=== PATIENT | male | born 1980 ===

== ENCOUNTER 2024-09-07 17:17 | Outpatient (REF) | payer BC, SELFPAY ==
[2024-09-07 19:59] LABS: BUN 10 mg/dL (7-18); Calcium 10.3 mg/dL (8.5-10.1); Chloride 105 mmol/L (98-107); Glucose 98 mg/dL (74-106); Sodium 144 mmol/L (136-145); Vitamin B12 234 pg/mL (193-986); Vitamin D 25 Total 41.2 ng/mL (30-100)
== END 2024-09-07 17:18 | disposition home or self-care (01) ==
LOC: NCHCN 17:17
PROVIDERS: Visit Provider Family Medicine
DX: I10 Essential (primary) hypertension (principal); K90.0 Celiac disease
CPT/HCPCS: 80048; 82306; 82607

== ENCOUNTER 2024-10-10 05:12 | Emergency (ER) | payer BC, SELFPAY ==
[2024-10-10] VITALS (19 sets, daily range): BP systolic 112–149; BP diastolic 73–90; PULSE 67–86; RESP 11–22; TEMP 36.8; O2SAT 94–100
--- NOTE | 2024-10-10 05:15 | RT.EKG_ITS ---
APPROVED REPORT Exam: Resting ECG Reason for Exam: dizzy Patient Location: E HR:75 bpm ECG Measurements Heart Rate 75 AXIS MO 152 P 59 QRSd 104 QRS 53 QT 389 T 51 QTc 434 Conclusion Sinus rhythm...normal P axis, V-rate 60- [address] segment or T wave abnormalities to suggest occlusive [place]
--- NOTE | 2024-10-10 06:02 | ED.GENADUL_ITS ---
Discharge Plan Disposition Patient Disposition: Home Condition: Good Discharge Details Clinical Impression: Paresthesia Primary Care Provider: Unknown,Unknown ED Provider: Alana Reed Home Meds and New Rx's Prescriptions: Continued perindopril erbumine 8 mg tablet 8 mg PO DAILY prednisone 20 mg tablet 20 mg PO DAILY Patient Comments: started today for poison danielle rash, on face Rx Instructions: days 11-21 of therapy Discharge Instructions Instructions: Paresthesia (DC) Additional Instructions: Call your primary care doctor on Friday to schedule an appointment to followup on your visit here, ideally early this week. Return to the emergency department for new or worsening symptoms including weakness of one part of your body, new/different/worse paresthesias, vertigo, vision changes, dififculty walking, or if you have any other concerns. HPI General Mode of arrival: ambulatory . Date/Time Provider Initiated Documentation: 10/10/24 05:14 . Limitations to Documentation: no limitations . Information obtained by: patient . HPI Narrative: 44yo M with hx of hypertension presenting for multiple symptoms. In the last week of August he began to have generalized weakness and intermittent pain in his legs and elbow. Pain is in various locations- denson, muscles, joint, doesn't seem to consistent be the same. Sometimes unilateral, sometimes bilateral. Sometimes it feels deep, aching. Other times numb which he clarifies to mean tingling/burning pain. He scheduled an appointment with his PCP but subsequently he stopped taking melatonin, began sleeping better, and his symptoms improved so he canceled the appointment. Over the past 3-4 days symptoms have gotten worse again and he rescheduled the appointment. This morning while driving to the airport for a business trip he began to have tingling pain in both his arms and this is what prompted presentation to the ED today. Still feels generally weak all over, but not as bad as before. Reports he had a rash on his face and was seen at urgent care yesterday, started prednisone today for this. Last saw his PCP about a week before the onset of symptoms in August, at that time was found to have low B12 (got an injection) and high calcium. Otherwise in his usual state of health with no fevers, chills, rash, nausea, vomiting, abdominal pain, sensory numbness, focal weakness, back pain, vertigo, vision changes, auditory changes, headache, chest pain, shortness of breath, or other concerns. Related Data Home Medications ?Medication ?Instructions ?Recorded ?Confirmed perindopril erbumine 8 mg tablet 8 mg PO DAILY 10/10/24 10/10/24 prednisone 20 mg tablet 20 mg PO DAILY 10/10/24 10/10/24 Allergies Allergy/AdvReac Type Severity Reaction Status Date / Time gluten Allergy Intermediate Other (See Verified 10/10/24 05:27 Comment) Penicillins Allergy Mild rash Verified 10/10/24 05:27 General Stated Complaint: [facility] STEPHON: 3 Review of Systems Narrative: see HPI Exam Narrative Exam Narrative: General: Alert, well appearing, well nourished, in no acute distress. Head: Normocephalic, atraumatic Neck: Trachea midline, ?Neck supple. ENT: ?MMM.? No oropharygeal lesions or exudate. Cardiac: ?RRR, no murmurs appreciated Resp: No respiratory distress. CTAB. Abd: ?Soft, non-distended, nontender Back: No midline tenderness. : ?No suprapubic tenderness. No CVA tenderness. Extremities: ?No deformities.? No peripheral edema. Neuro: ? GCS 15.? PERRL.? EOMI.? Fluent speech, no dysarthria. Motor- 5/5 strength symmetric bilateral upper and lower extremities including shoulder abductors/adductors, elbow flexors/extensors, wrist flexors/extensors, finger abductors/adductors, hipflexors/extensors, knee flexors/extensors, ankle dorsiflexors and planter flexors. Sensation- ?Intact to light touch and symmetric multiple dermatomes including upper and lower extrmeities Coordination- No dysmetria on finger to nose Reflexes- 2/4 achilles & patellar, no clonus Gait/station: ?Normal stance.? No truncal ataxia. Steady gait with equal normal steps CRANIAL NERVES: II: Pupils equal and reactive, III, IV, : EOM intact, no gaze preference or deviation, no nystagmus. V: normal sensation in V1, V2, and V3 segments bilaterally VII: no asymmetry, no nasolabial fold flattening VIII: normal hearing to speech IX, X: normal palatal elevation, no uvular deviation XI: 5/5 head turn and 5/5 shoulder shrug bilaterally XII: midline tongue protrusion Course Vital Signs Vital signs: Vital Signs Temperature 36.8 C 10/10/24 05:15 Pulse 79 10/10/24 05:15 Respiratory Rate 16 10/10/24 05:15 Blood Pressure 149/90 H 10/10/24 05:15 Pulse Oximetry 100 10/10/24 05:15 Temperature 36.8 C 10/10/24 05:15 Temperature Source Temporal Artery Scan 10/10/24 05:15 Pulse 79 10/10/24 05:15 Respiratory Rate 16 10/10/24 05:33 Respiratory Effort Normal 10/10/24 05:33 Respiratory Depth Normal 10/10/24 05:33 Respiratory Pattern Normal 10/10/24 05:33 Blood Pressure 149/90 H 10/10/24 05:15 Blood Pressure Position Sitting 10/10/24 05:15 Pulse Oximetry 100 10/10/24 05:15 Oxygen Delivery Method Room Air 10/10/24 05:15 Oxygen Flow Rate 0 10/10/24 05:15 Pain Level 2 10/10/24 05:15 Medical Decision Making 44yo M with hx of hypertension presenting for multiple symptoms. For the past several weeks has had waxing and waning generalized weakness and migratory extremity pain varying in character. This morning prior to leaving for a business trip had a tingling/burning sensation in both arms which was worse than it has been before and prompted presentation to the ED. Primary care visit scheduled for early October for these symptoms. Aside from intermittent paresthesias, no neurologic complaints. Paresthesias resolved prior to arrival in the ED. Vital signs and physical exam reassuring. Normal neurologic exam. No back pain or injuries. History and exam reassuring against CVA, cord injury/compression, GBS, ALS, porphyrias. Considered myopathy, demyleinating process, syringomyelia, however with his normal exam here appropriate for outpatient workup in that regard. Given he reports a hx of hypercalcemia as well as family hx of multiple myeloma (he is most concerned this may contributing to his symptoms today) will evaluate with CBC and metabolic panel. -EKG SR, appropriate intervals, no ST segment or T wave abnormalities to suggest occlusive [place]. -Labs reviewed as below, CBC reassuring with normal Hg, WBC, and platelets. CMP with normal electrolytes and Cr, Mg normal. Does have mild hyperbilirubinemia at 1.8 of unclear significance, no prior labs available for comparison. On reassessment he remains well appearing with a reassuirng physical exam. Advised close PCP followup for his symptoms and his bilirubin level, ideally this week. Instructed to return to the emergency department should his symptoms worsen. Discharged home; discharge instructions and return precautions were reviewed with patient who verbalized understanding. All questions were answered and he is in full agreement with the plan. Quality:SDOH Health Related Social Needs: No Data to Display PFSH All Active Problems (Updated 10/10/24 @ 07:06 by Alana Reed MD) Paresthesia (Acute) Social History Smoking/Tobacco Use Status: Former Tobacco Use Smoking risk assessment performed?: Yes Alcohol Intake: never Substance use type: does not use Housing: apartment Do you feel safe at home: Yes
[2024-10-10 06:05] LABS: Abs Immature Grans 0.02 10^3/uL (0.0-0.06); Absolute Basophil Count 0.03 10^3/uL (0.0-0.2); Absolute Eosinophil Count 0.09 10^3/uL (0.0-0.7); Absolute Lymphocyte Count 2.42 10^3/uL (1.2-3.4); Absolute Monocyte Count 0.69 10^3/uL (0.1-0.8); Absolute Neutrophil Count 3.12 10^3/uL (1.2-6.7); Basophils % 0.5 %; Eosinophils % 1.4 %; HCT 45.4 % (40.0-50.0); HGB 15.7 g/dL (13.5-17.5); Immature Grans % 0.3 %; MCHC 34.6 % (32.0-36.0); MCV 95 fL (80-95); Monocytes % 10.8 %; Platelet Count 145 10^3/uL (130-400); RBC 4.76 10^6/uL (4.36-5.78); RDW 12.4 % (11.8-14.1); RDW-SD 43.1 fL; WBC 6.37 10^3/uL (4.4-10.8)
[2024-10-10 06:15] LABS: ALT 20 U/L (16-63); AST 17 U/L (15-37); Albumin 4.3 g/dL (3.4-5.0); Alkaline Phosphatase 80 U/L (46-116); Anion Gap 11.9 mmol/L (3-11); BUN 11 mg/dL (7-18); Bilirubin, Total 1.81 mg/dL (0.2-1.0); CO2 30.1 mmol/L (21.0-32.0); CREATININE 1.1 mg/dL (0.70-1.30); Calcium 9.4 mg/dL (8.5-10.1); Chloride 102 mmol/L (98-107); Estimated GFR 83.84 (mL/min/1.73m2); Glucose 107 mg/dL (74-106); Potassium 3.5 mmol/L (3.5-5.1); Sodium 144 mmol/L (136-145); Total Protein 7.6 g/dL (6.4-8.2)
== END 2024-10-10 07:15 | disposition home or self-care (01) ==
PROVIDERS: Emergency Provider Student in an Organized Health Care Education/Training Program
DX: R20.2 Paresthesia of skin (principal); R53.1 Weakness; R21 Rash and other nonspecific skin eruption; Z87.891 Personal history of nicotine dependence
CPT/HCPCS: 36415; 80053; 93005; 99284; 83735; 85025; 93010

== ENCOUNTER 2025-05-03 21:58 | Outpatient (REF) | payer BC, SELFPAY ==
[2025-05-03 22:21] LABS: Abs Immature Grans 0.02 10^3/uL (0.0-0.06); Absolute Basophil Count 0.03 10^3/uL (0.0-0.2); Absolute Eosinophil Count 0.06 10^3/uL (0.0-0.7); Absolute Lymphocyte Count 1.47 10^3/uL (1.2-3.4); Absolute Monocyte Count 0.53 10^3/uL (0.1-0.8); Absolute Neutrophil Count 4.43 10^3/uL (1.2-6.7); Basophils % 0.5 %; Eosinophils % 0.9 %; HCT 42.2 % (40.0-50.0); HGB 14.6 g/dL (13.5-17.5); Immature Grans % 0.3 %; Lymphocytes % 22.5 %; MCH 32.7 pg (27.0-33.0); MCHC 34.6 % (32.0-36.0); MCV 95 fL (80-95); Monocytes % 8.1 %; Neutrophils % 67.7 %; Platelet Count 155 10^3/uL (130-400); RBC 4.46 10^6/uL (4.36-5.78); RDW 12.4 % (11.8-14.1); RDW-SD 43.2 fL; WBC 6.54 10^3/uL (4.4-10.8)
[2025-05-03 22:56] LABS: BUN 13 mg/dL (7-18); CREATININE 0.9 mg/dL (0.70-1.30); Calcium 9.3 mg/dL (8.5-10.1); Calculated LDL 117 mg/dL (<100); Chloride 102 mmol/L (98-107); Cholesterol 216 mg/dL (<200); Estimated GFR 106.01 (mL/min/1.73m2); Glucose 101 mg/dL (74-106); HDL Cholesterol 47 mg/dL (>or=40); Potassium 3.8 mmol/L (3.5-5.1); Sodium 137 mmol/L (136-145); Triglyceride 261 mg/dL (<150); Vitamin B12 596 pg/mL (193-986); Vitamin D 25 Total 43 ng/mL (30-100)
== END 2025-05-03 21:59 | disposition home or self-care (01) ==
LOC: NCHCN 21:58
PROVIDERS: Visit Provider Family Medicine
DX: I10 Essential (primary) hypertension (principal); E53.8 Deficiency of other specified B group vitamins; Z13.220 Encounter for screening for lipoid disorders
CPT/HCPCS: 80048; 80061; 82306; 82607; 85025